=== PATIENT | female | born 1965 | race Caucasian/White ===

== ENCOUNTER 2019-09-21 21:38 | Emergency (ER) | payer BC ==
[~2019-09-21] VITALS: Ht 162.6 cm; Wt 79.4 kg
[~2019-09-21 21:38] MED LIST: ACETAMINOPHEN325 M1 PO; HYDROCHLOROTH12.5 M1 PO; K-DUR 20 MEQ T20 MEQ PO; LABETALOL 100100 MG; LEVOTHYROXINE 0.1 MG PO; METFORMIN HCL500 MG; METFORMIN HCL500 MG PO; NORVASC5 MG PO
[2019-09-21] MEDS ORDERED: QUINIPRIL PO (21:50)
[2019-09-21] MEDS ORDERED: LEVAQUIN 750 M750 MG PO (21:50)
[2019-09-21] MEDS ORDERED: SYMBICORT160 MCG/4. INH (21:51)
[2019-09-21 22:22] LABS: URINE BILIRUBIN NEGATIVE (Negative); URINE BLOOD 3+ (Negative); URINE CLARITY SL CLOUDY; URINE COLOR YELLOW; URINE GLUCOSE-RANDOM* NEGATIVE (Negative); URINE KETONES NEGATIVE (Negative); URINE LEUKOCYTES-REFLEX TRACE (Negative); URINE NITRITE-REFLEX NEGATIVE (Negative); URINE PROTEIN (DIPSTICK) NEGATIVE (Negative); URINE SPECIFIC GRAVITY >= 1.030 (1.005-1.035); URINE UROBILINOGEN 0.2 E.U./dl (0.2-1.0)
[2019-09-21 22:24] LABS: ABSOLUTE NEUTROPHILS 5.1 thou/uL (1.4-8.2); BASOPHILS 0.2 % (0.0-2.0); EOSINOPHILS 1.7 % (0.0-3.0); HEMATOCRIT 48.7 % (37.0-47.0); HEMOGLOBIN 16.7 gm/dL (12.0-15.0); LYMPHOCYTES 37.2 % (24.0-44.0); MCH 33.3 pg (26.0-34.0); MCHC 34.2 g/dL (28.0-37.0); MCV 97.4 fL (80.0-100.0); MONOCYTES 5.4 % (1.0-8.0); PLATELET COUNT 285 thou/uL (150-400); POLYS 55.5 % (36.0-66.0); RBC 5.01 mil/uL (4.20-5.00); RDW 13.3 % (10.5-14.5); WBC 9.2 thou/uL (4.0-11.0)
[2019-09-21 22:30] LABS: CREATININE 1.1 mg/dL (0.6-1.0); POTASSIUM 4.1 mmol/L (3.5-5.1)
[2019-09-21 22:35] LABS: SQUAMOUS 4-10 Moderate /LPF (0-3)
[2019-09-21 22:36] LABS: BACTERIA-REFLEX 1-9 Few /HPF (None Seen); CALCIUM OXALATE 4-10 Moderate /LPF (None Seen); CASTS None Seen /LPF (None Seen); MUCUS 0-3 Light strn/LPF (None Seen); URINE WBC-REFLEX 0-5 Rare /HPF (0-5)
[2019-09-21 22:37] LABS: ALBUMIN 3.6 g/dL (3.4-5.0); TOTAL BILIRUBIN 0.5 mg/dL (<0.1-1.0); TOTAL PROTEIN 6.9 g/dL (6.4-8.2)
[2019-09-22] MEDS ORDERED: NORCO 7.5-3251 EACH PO (03:08)
[2019-09-22] MEDS ORDERED: ZOFRAN ODT4 MG PO (03:08)
[2019-09-22] MEDS ORDERED: SENNA-DOCUSATE1 EAC1 PO (03:08)
[2019-09-22 03:25] VITALS: BP 180/76
== END 2019-09-22 03:25 | disposition home or self-care (01) ==
LOC: ER 21:38
PROVIDERS: Physician Assistant
DX: N28.89 Other specified disorders of kidney and ureter (principal); I10 Essential (primary) hypertension; E11.9 Type 2 diabetes mellitus without complications; E03.9 Hypothyroidism, unspecified; Z88.8 Allergy status to other drugs, medicaments and biological substances; Z79.899 Other long term (current) drug therapy; Z98.84 Bariatric surgery status